=== PATIENT | male | born 1995 | race Hispanic/Latino ===

== ENCOUNTER 2021-07-02 10:03 | Emergency (ER) | payer OTHER, SELFPAY ==
[2021-07-02 10:29] VITALS: BP 144/75; PULSE 66; RESP 16; TEMP 37.1; O2SAT 100
--- NOTE | 2021-07-02 10:52 | ED.URI ---
HPI - URI/Sore Throat General Chief Complaint: Upper Respiratory Infection Stated Complaint: lt ear pain/cough,throat pain Time Seen by Provider: 07/02/21 10:45 Source: patient and RN notes reviewed Mode of arrival: ambulatory Limitations: no limitations History of Present Illness HPI Narrative: Kadie is a 25-year-old male patient who ambulated into the [facility]. Patient states he has a 3-day history of congestion, sore throat, left ear pain and cough, patient has been taking [id number] DayQuil and NyQuil with minimal relief. Patient does work [place]. Patient does have a history of a tonsillectomy, right-sided rhinoplasty. MD elicited complaint: sore throat and nasal congestion Related Data Allergies Allergy/AdvReac Type Severity Reaction Status Date / Time polymyxin B [From Polytrim] Allergy Swelling Verified 07/02/21 10:42 trimethoprim [From Polytrim] Allergy Swelling Verified 07/02/21 10:42 Review of Systems Review of Systems: CONSTITUTIONAL: Denies body aches, fever, chills, or sweats. EYES: Denies visual changes, redness, or discharge. ENT: +rhinorrhea,+ congestion,+ sore throat, +otalgia. CARDIOVASCULAR: Denies chest pain, palpitations, or edema. RESPIRATORY: + cough denies dyspnea. GASTROINTESTINAL: Denies abdominal pain, nausea, vomiting, or diarrhea. GENITOURINARY: Denies dysuria or hematuria. SKIN: Denies rash, itching, or wounds. MUSCULOSKELETAL: Denies back pain, joint pain, or myalgia. NEUROLOGIC: Denies headache, numbness, tingling, or weakness. PSYCH: Denies depression or anxiety. All systems reviewed & are unremarkable except as noted in HPI and below PMFSH Comments At time of signature, I have reviewed and agree with nursing past medical, surgical, social and family history unless otherwise noted. Please see nursing chart for further information. There is no relevant family history pertinent to the presenting complaint Exam Narrative: GENERAL: Well-appearing, well-nourished, and in no acute distress. HEAD: Normocephalic, atraumatic. EYES: EOMI. No redness or drainage. Conjunctivae normal. ENT: Mucous membranes pink and moist. Nasal membranes are erythemic with clear rhinorrhea. Bilateral tympanic membranes are dull with minimal bulging no erythema, posterior pharynx is erythemic with moderate amount of clear postnasal drainage. Uvula midline. NECK: Normal AROM. Supple. No lymphadenopathy. CHEST: No respiratory distress. Clear to auscultation. MUSCULOSKELETAL: No bony tenderness. EXTREMITIES: Normal range of motion. No edema. SKIN: Warm, dry, no rash. Capillary refill normal. Normal skin turgor. NEURO: No focal deficits. Alert and oriented x3. Gait steady. PSYCH: Normal affect. No signs of depression or anxiety. Course Vital Signs Vital signs: Vital Signs Temperature 37.1 C 07/02/21 10:29 Pulse Rate 66 07/02/21 10:29 Respiratory Rate 16 07/02/21 10:29 Blood Pressure 144/75 H 07/02/21 10:29 Pulse Oximetry 100 07/02/21 10:29 Temperature 37.1 C 07/02/21 10:29 Pulse Rate 66 07/02/21 10:29 Respiratory Rate 16 07/02/21 10:29 Blood Pressure 144/75 H 07/02/21 10:29 Pulse Oximetry 100 07/02/21 10:29 Reviewed. Pt has been instructed to follow up with his PCP regarding his elevated blood pressure today. MDM - URI/Sore Throat MDM Narrative Medical decision making narrative: Patient's rapid strep and COVID-19 swab were both negative. Throat culture was sent to lab. Results will be back in about 3 days. Patient was instructed to follow-up for further COVID-19 testing for continued or increase in symptoms. Patient most likely has nasopharyngitis or the common cold. Patient will be treated with [id number] Sudafed such as Claritin-D or Zyrtec-D. Patient was given a 5-day dose of steroids. Differential Diagnosis Differential diagnosis: Likely upper respiratory infection, viral infection, bronchitis, pharyngitis and other (strep pha
== END 2021-07-02 11:22 | disposition home or self-care (01) ==
PROVIDERS: Emergency Provider Nurse Practitioner Family
DX: J00 Acute nasopharyngitis [common cold] (principal); Z20.822 Contact with and (suspected) exposure to COVID-19
CPT/HCPCS: 87081; 87426; 87880; 99203; 99213; C9803; G0463